=== PATIENT | male | born 1995 | race Caucasian/White ===

== ENCOUNTER 2020-06-19 16:05 | Emergency (ER) | payer OTHER ==
[~2020-06-19 16:05] MED LIST: COLACE100 MG PO; IBUPROFEN200 M1 PO; IBUPROFEN600 MG PO; NORCO 7.5-3251 EACH PO; TYLENOL 500 MG500 MG PO; VENTOLIN HFA 66.7 GM INH
== END 2020-06-19 19:30 | disposition left against medical advice (07) ==
LOC: ER1 16:05
DX: R10.30 Lower abdominal pain, unspecified (principal); Z53.21 Procedure and treatment not carried out due to patient leaving prior to being seen by health care provider